=== PATIENT | female | born 1995 ===

== ENCOUNTER 2021-09-16 17:51 | Emergency (ER) | payer OTHER ==
--- NOTE | 2021-09-16 19:04 | Event Note ---
ED Screening Note ED Screening Note: Patient presents for palpitations that began last night She reports that she also had a brief episode of syncope She has associated nausea and vomiting last night but that has resolved Patient states that last night she drank an energy drink, ate pork, and drink. She states her symptoms began shortly after that She denies any chest pain, shortness of breath, diarrhea, fever Patient denies any past medical history No medication allergies This initial assessment/diagnostic orders/clinical plan/treatment(s) is/are subject to change based on patients health status, clinical progression and re- assessment by fellow clinical providers in the ED. Further treatment and workup at subsequent clinical providers discretion. Patient/guardian urged not to elope from the ED as their condition may be serious if not clinically assessed and managed. Initial orders include: Labs, urine, EKG
[2021-09-16 19:27] LABS: Basophils % (Auto) 0.4 % (0.0-1.8); Eosinophils % (Auto) 0.1 % (0.0-4.3); Hematocrit 39.7 % (30.3-42.9); Hemoglobin 13.1 gm/dl (10.1-14.3); Lymphocytes # (Auto) 2.7 K/mm3 (1.2-5.4); Lymphocytes % (Auto) 23.2 % (13.4-35.0); Mean Corpuscular HGB Conc 33 % (30-34); Mean Corpuscular Volume 89 fl (79-97); Monocytes # (Auto) 0.5 K/mm3 (0.0-0.8); Monocytes % (Auto) 4.3 % (0.0-7.3); Platelet Count 260 K/mm3 (140-440); Red Blood Count 4.47 M/mm3 (3.65-5.03); Red Cell Distribution Width 12.7 % (13.2-15.2)
[2021-09-16 19:46] LABS: Alanine Aminotransferase 13 units/L (7-56); Albumin 4.6 g/dL (3.9-5); Blood Urea Nitrogen 11 mg/dL (7-17); Calcium 10.2 mg/dL (8.4-10.2); Hemolysis Index 7
[2021-09-16 19:47] LABS: BUN/Creatinine Ratio 22
[2021-09-16 21:07] LABS: Bilirubin,Urine NEG (Negative); Blood,Urine NEG (Negative); Color,Urine Yellow (Yellow); Mucus,Urine FEW /HPF; Protein,Urine <15 mg/dL mg/dL (Negative); RBC,Urine < 1.0 /HPF (0.0-6.0); Urobilinogen,Urine < 2.0 mg/dL (<2.0)
[2021-09-16 21:09] LABS: Amphetamine Screen,Urine Negative; Benzodiazepines Screen,Urine Negative; Cocaine Screen,Urine Negative; Methadone Screen,Urine Negative; Opiate Screen,Urine Negative
[2021-09-16 21:23] LABS: Cannabinoid Screen,Urine Positive
--- NOTE | 2021-09-16 22:14 | Emergency Department Report ---
ED Syncope HPI - General Chief Complaint: Syncope Stated Complaint: Hypertension Time Seen by Provider: 09/16/21 21:37 Source: patient Exam Limitations: no limitations - History of Present Illness Initial Comments: CC: "I blacked out." HPI: This is a healthy 26-year-old female with no significant past medical history who blacked out last night while drinking beer and an energy drink. She was drinking beer throughout the day. She did not have any preceding chest pain. Today she is feeling well with her normal state of health. She is currently symptom-free. Timing/Prior Episodes: no prior history Precipitating Factors: Positive: other (Alcohol energy drink) Loss of Consciousness: brief (seconds) (Witnessed by her boyfriend) Current Symptoms: back to normal ED Review of Systems ROS: Stated complaint: Hypertension Other details as noted in HPI Comment: All other systems reviewed and negative Constitutional: denies: fever, malaise Eyes: denies: as per HPI Respiratory: denies: cough, shortness of breath Cardiovascular: denies: chest pain Gastrointestinal: denies: abdominal pain, nausea, vomiting ED Past Medical Hx - Past Medical History Previous Medical History?: No - Surgical History Past Surgical History?: No - Social History Smoking Status: Never Smoker Substance Use Type: Marijuana ED Physical Exam - General Limitations: No Limitations General appearance: alert, in no apparent distress, other (Well-appearing healthy) - Head Head exam: Present: atraumatic, normocephalic - Eye Eye exam: Present: normal appearance - ENT ENT exam: Present: mucous membranes moist - Neck Neck exam: Present: normal inspection - Respiratory Respiratory exam: Present: normal lung sounds bilaterally. Absent: respiratory distress - Cardiovascular Cardiovascular Exam: Present: regular rate, normal rhythm. Absent: systolic murmur, diastolic murmur, rubs, gallop - GI/Abdominal GI/Abdominal exam: Present: soft, normal bowel sounds. Absent: distended, tenderness, guarding, rebound - Extremities Exam Extremities exam: Present: normal inspection - Back Exam Back exam: Present: normal inspection - Neurological Exam Neurological exam: Present: alert, oriented X3 - Psychiatric Psychiatric exam: Present: normal affect, normal mood - Skin Skin exam: Present: warm, dry, intact, normal color. Absent: rash ED Course Vital Signs 09/16/21 18:14 Temperature 98.1 F Pulse Rate 92 H Respiratory 16 Rate Blood Pressure 106/75 [Right] O2 Sat by Pulse 99 Oximetry ED Medical Decision Making - Lab Data Result diagrams: 09/16/21 19:11 09/16/21 19:11 Laboratory Results - last 24 hr 09/16/21 09/16/21 09/16/21 19:11 19:11 19:11 WBC 11.5 H RBC 4.47 Hgb 13.1 Hct 39.7 MCV 89 MCH 29 MCHC 33 RDW 12.7 L Plt Count 260 Lymph % (Auto) 23.2 [place] % (Auto) 4.3 Eos % (Auto) 0.1 Baso % (Auto) 0.4 Lymph # (Auto) 2.7 [place] # (Auto) 0.5 Eos # (Auto) 0.0 Baso # (Auto) 0.0 Seg Neutrophils % 72.0 H Seg Neutrophils # 8.3 H Sodium 137 Potassium 3.6 Chloride 99.4 Carbon Dioxide 25 Anion Gap 16 BUN 11 Creatinine 0.5 L Estimated GFR > 60 BUN/Creatinine Ratio 22 Glucose 112 H Calcium 10.2 Magnesium 1.80 Total Bilirubin 0.40 AST 21 ALT 13 Alkaline Phosphatase 67 Total Creatine Kinase 85 Total Protein 7.9 Albumin 4.6 Albumin/Globulin Ratio 1.4 TSH 0.368 HCG, Qual Urine Color Urine Turbidity Urine pH Ur Specific [place]jay Urine Protein Urine Glucose (UA) Urine Ketones Urine Blood Urine Nitrite Urine Bilirubin Urine Urobilinogen Ur Leukocyte Esterase Urine WBC (Auto) Urine RBC (Auto) U Epithel Cells (Auto) Urine Mucus Urine Opiates Screen Urine Methadone Screen Ur Barbiturates Screen Ur Phencyclidine Scrn Ur Amphetamines Screen U Benzodiazepines Scrn Urine Cocaine Screen U Marijuana (THC) Screen Drugs of Abuse Note 09/16/21 09/16/21 09/16/21 19:11 Unknown Unknown WBC RBC Hgb Hct MCV MCH MCHC RDW Plt Count Lymph % (Auto) [place] % (Auto) Eos % (Auto) Baso % (Auto) Lymph # (Auto) [place] # (Auto) Eos # (Auto) Baso # (Auto) Seg Neutrophils % Seg Neutrophils # Sodium Potassium Chloride Carbon Dioxide Anion Gap BUN Creatinine Estimated GFR BUN/Creatinine Ratio Glucose Calcium Magnesium Total Bilirubin AST ALT Alkaline Phosphatase Total Creatine Kinase Total Protein Albumin Albumin/Globulin Ratio TSH HCG, Qual Negative Urine Color Yellow Urine Turbidity Clear Urine pH 5.0 Ur Specific Arjay 1.010 Urine Protein <15 mg/dl Urine Glucose (UA) Neg Urine Ketones Neg Urine Blood Neg Urine Nitrite Neg Urine Bilirubin Neg Urine Urobilinogen < 2.0 Ur Leukocyte Esterase Neg Urine WBC (Auto) 3.0 Urine RBC (Auto) < 1.0 U Epithel Cells (Auto) 2.0 Urine Mucus Few Urine Opiates Screen Negative Urine Methadone Screen Negative Ur Barbiturates Screen Negative Ur Phencyclidine Scrn Negative Ur Amphetamines Screen Negative U Benzodiazepines Scrn Negative Urine Cocaine Screen Negative U Marijuana (THC) Screen Positive Drugs of Abuse Note Disclamer - EKG Data -: EKG Interpreted by Me EKG shows normal: sinus rhythm, axis, intervals, QRS complexes, ST-T waves Rate: normal - EKG Data Interpretation: normal EKG 09/16/21 22:12 EKG obtained 1933 EKG interpreted by ms Normal sinus rhythm rate 60 bpm normal axis normal intervals no ST sign ischemia - Medical Decision Making Vasovagal syncope in the setting of alcohol and marijuana use. Drug-induced seizure on a different diagnosis. No indication of pulmonary embolism, structural heart disease or lethal arrhythmia. EKG is normal. No significant tachycardia. Urine tox from past for marijuana urinalysis unremarkable EKG TSH chemistry CBC all unremarkable. Critical care attestation.: If time is entered above; I have spent that time in minutes in the direct care of this critically ill patient, excluding procedure time. ED Disposition Clinical Impression: Vasovagal syncope Disposition: 01 HOME / SELF CARE / HOMELESS Is pt being admited?: No Does the pt Need Aspirin: No Condition: Stable Instructions: Syncope (ED), Syncope, [id number] Referrals: JOSEPH SHABAZZ MD [Staff Physician] - 3-5 Days
[2021-09-16 22:28] VITALS: BP 115/62
--- NOTE | 2021-09-17 12:58 | Electrocardiograph Report ---
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
--- NOTE | 2021-09-17 12:58 | Electrocardiograph Report ---
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
== END 2021-09-16 22:10 | disposition home or self-care (01) ==
LOC: ED 17:51
DX: R55 Syncope and collapse (principal); F12.90 Cannabis use, unspecified, uncomplicated; Z79.899 Other long term (current) drug therapy
CPT/HCPCS: 36415; 80053; 80307; 81001; 82550; 83735; 84443; 84703; 85025; 93005; 99283